=== PATIENT | female | born 1960 | race Caucasian/White ===

== ENCOUNTER 2016-07-14 13:52 | Inpatient (IN) ==
[2016-07-14 14:41] LABS: Amphetamine Screen,Urine Negative ng/mL (Cutoff=1000); Barbiturate Screen,Urine Negative ng/mL (Cutoff=200); Benzodiazepines Screen,Urine Positive ng/mL (Cutoff=200); Cannabinoid Screen,Urine Negative ng/mL (Cutoff = 50); Cocaine Screen,Urine Negative ng/mL (Cutoff= 300); Opiate Screen,Urine Positive ng/mL (Cutoff=300); Phencyclidine Screen,Urine Negative ng/mL (Cutoff=25)
[2016-07-14 14:45] LABS: Bilirubin,Urine Negative (Negative); Blood,Urine Negative (Negative); Clarity,Urine Clear (Clear); Color,Urine Yellow (Yellow); Glucose,Urine (UA) Normal (Normal); Ketones,Urine Negative (Negative); Leukocyte Esterase,Urine Small (Negative); Nitrite,Urine Positive (Negative); PH,Urine 6.5 pH Units (5.0-8.0); Protein,Urine Negative (Neg-Trace); Specific Gravity,Urine 1.014 (1.010-1.025); Urobilinogen,Urine Normal (Normal)
[2016-07-14 14:49] LABS: Bacteria,Urine Few per hpf (None-Few); Hyaline Casts,Urine None Seen per lpf (None-Few); RBC,Urine 0-3 per hpf (0-3); Squamous Epithelial Cell,Urine Many per lpf (None-Few)
[2016-07-14 14:51] LABS: Basophils # 0.1 K/mcL (0.0-0.2); Basophils % 0.9 %; Eosinophils % 0.5 %; Hematocrit 39.2 % (35.3-44.9); Hemoglobin 13.2 g/dL (11.5-15.4); Immature Granulocytes % 0.5 % (0-4); Lymphocytes # 3.5 K/mcL (0.6-4.6); Mean Corpuscular HGB Conc 33.7 g/dL (31.6-35.5); Mean Corpuscular Hemoglobin 29.9 pg (28.0-33.3); Mean Corpuscular Volume 88.7 fL (83.0-100.0); Mean Platelet Volume 9.8 fL (9.4-12.4); Monocytes # 0.5 K/mcL (0.0-1.3); Monocytes % 6.1 %; Neutrophils # 4.6 K/mcL (1.6-8.9); Platelet Count 218 K/mcL (140-400); Red Blood Count 4.42 M/mcL (3.82-4.97); Red Cell Distribution Width 13.1 % (11.5-14.5)
[2016-07-14 14:56] LABS: BUN/Creatinine Ratio 18 (6-26); Blood Urea Nitrogen 16 mg/dL (7-20); Calcium 9.4 mg/dL (8.6-10.8); Carbon Dioxide 25 mEq/L (19-29); Chloride 106 mEq/L (98-109); Ethanol < 10 mg/dL (0-10); Glucose 103 mg/dL (70-99); Osmolality,Calculated 293 (280-300); Potassium 3.6 mEq/L (3.5-4.5); Salicylate < 5.0 mg/dL (15-30); Sodium 141 mEq/L (136-145); eGFR For African Americans > 60 (> 60); eGFR For Non-African Americans > 60 (> 60)
--- NOTE | 2016-07-14 14:59 | Emergency Department Note ---
Disposition Clinical Impression: Suicidal ideation Disposition: Admitted As Inpatient Condition: Good Time of Disposition: 17:28 Psych HPI - General Chief Complaint: ED Psychiatric Symptoms Stated Complaint: SI / Anxiety Time Seen by Provider: 07/14/16 14:10 Source: patient, family Mode of arrival: ambulatory Limitations: no limitations Nursing Notes Reviewed: Yes Vital Signs Reviewed: Yes - History of Present Illness HPI Narrative: Patient presents emergency room the care of the family for evaluation of suicidal thoughts or ideation and a plan. Patient was waving a gun around at home yesterday saying she is shooting herself. Patient also has access to guns and knives.. Patient is long-standing history of depression. Off her medication several months ago. Since then she has had poorly controlled symptoms. Patient denies any other complaints or issues at this time no other medical history Pt complaint: suicidal ideation Onset (ago): day(s) Duration: constant History of similar episodes: Yes Improves with: none Worsens with: none Context: not taking psychiatric medications Associated Psychiatric Symptoms: depression, suicidal ideation Associated symptoms: Reports: denies other symptoms Treatments prior to arrival: none Self harm or harm to others: admits thoughts of self harm, has plan - Related Data Allergies Allergy/AdvReac Type Severity Reaction Status Date / Time No Known Allergies Allergy Verified 07/14/16 14:28 All systems ED: reviewed and negative except as stated. Constitutional: Denies: fever Cardiovascular: Denies: palpitations, dyspnea on exertion Respiratory: Denies: dyspnea, wheezes Gastrointestinal: Denies: abdominal pain, nausea, vomiting Genitourinary: Denies: dysuria, frequency Psychiatric: Reports: depression, suicidal thoughts. Denies: auditory hallucinations, visual hallucinations Past Medical History - Past Medical History Attestation: Yes The following information was validated with the patient. Source: patient Medical history: Reports: no medical history Psychiatric history: Reports: anxiety, previous psychiatric hospitalization - Social History Smoking Status: Current every day smoker Smokeless Tobacco Status: No Alcohol use: Reports: none Drug use: Reports: prescription drug abuse Physical Exam - General Limitations: no limitations General appearance: alert - Chest Chest inspection: Present: normal inspection, symmetric chest wall rise - Respiratory Respiratory exam: Present: normal lung sounds bilaterally - Cardiovascular Cardiovascular exam: Present: regular rate, normal rhythm, normal heart sounds - Abdominal Exam Abdominal exam: Present: soft, Non-Tender, normal bowel sounds. Absent: tenderness, distention, guarding, rebound, rigidity, Mcmahan's sign, Rovsing's sign, tenderness at McBurney's Point - Extremities Exam Extremities exam: Present: normal inspection, full ROM, normal capillary refill - Back Exam Back exam: Present: normal inspection, full ROM. Absent: tenderness - Neurological Exam Neurological exam: Present: alert, oriented X3 - Psychiatric Psychiatric exam: Present: normal affect, normal mood - Skin Skin exam: Present: warm, dry, intact, normal color Course Course Narrative: Patient seen and examined the time of arrival. 56-year-old female presenting here today with suicidal ideation and intent. She had a gun in her hand yesterday and was waving it around trying her describing that she is going to shoot herself. She has severe depression at baseline. She has been off her medications for the last 6 months. Patient denies any other symptoms or complaints. Patient denies chest pain shortness of breath headache vision changes nausea vomiting or diarrhea. Her only complaint on presentation here is that she will kill herself if she goes home. Patient does have access to guns, saw her doing this yesterday and they were concerned. She also has a history of cutting her wrists and forearms. Patient is no other visible injuries or trauma this time. She is stable one A Clares to be completed this point. A contacted by phone call was placed out to the psychiatric team here and they are going to come and evaluate the patient in the emergency room considering her labs are all normal. - Reevaluation(s) Reevaluation #1: Patient evaluated by the psychiatric team and they will be admitting for further evaluation and treatment. Will continue monitoring in the emergency room until the admission process is completed at this time. Time: 17:28 Vital Signs Temperature 98.1 F 07/14/16 13:54 Pulse Rate 85 07/14/16 13:54 Respiratory Rate 14 07/14/16 13:54 Blood Pressure 166/103 07/14/16 13:54 O2 Sat by Pulse Oximetry 98 07/14/16 13:54 Temperature 98.1 F 07/14/16 13:54 Pulse Rate 85 07/14/16 13:54 Respiratory Rate 14 07/14/16 13:54 Blood Pressure 166/103 07/14/16 13:54 O2 Sat by Pulse Oximetry 98 07/14/16 13:54 Oxygen Delivery Oxygen Delivery Room Air Psych - MDM Narrative Medical decision making narrative: Suicidal ideation with intent - Lab Data Lab results reviewed: Yes I reviewed the patient's lab results. Result diagrams: 07/14/16 14:31 07/14/16 14:31 Lab Results 07/14/16 07/14/16 07/14/16 Range/Units 14:25 14:25 14:31 WBC 8.8 (4.3-11.1) K/mcL RBC 4.42 (3.82-4.97) M/mcL Hgb 13.2 (11.5-15.4) g/dL Hct 39.2 (35.3-44.9) % MCV 88.7 (83.0-100.0) fL MCH 29.9 (28.0-33.3) pg MCHC 33.7 (31.6-35.5) g/dL RDW 13.1 (11.5-14.5) % Plt Count 218 (140-400) K/mcL MPV 9.8 (9.4-12.4) fL Immature Gran % 0.5 (0-4) % Seg Neutrophils % 52.0 % Lymphocytes % 40.0 % Monocytes % 6.1 % Eosinophils % 0.5 % Basophils % 0.9 % Neutrophils # 4.6 (1.6-8.9) K/mcL Lymphocytes # 3.5 (0.6-4.6) K/mcL Monocytes # 0.5 (0.0-1.3) K/mcL Eosinophils # 0.0 (0.0-0.6) K/mcL Basophils # 0.1 (0.0-0.2) K/mcL Sodium (136-145) mEq/L Potassium (3.5-4.5) mEq/L Chloride (98-109) mEq/L Carbon Dioxide (19-29) mEq/L BUN (7-20) mg/dL Creatinine (0.57-1.11) mg/dL Est GFR ( Amer) (> 60) Est GFR (Non-Af Amer) (> 60) BUN/Creatinine Ratio (6-26) Glucose (70-99) mg/dL Calculated Osmolality (280-300) Calcium (8.6-10.8) mg/dL Urine Color Yellow (Yellow) Urine Clarity Clear (Clear) Urine pH 6.5 (5.0-8.0) pH Units Ur Specific [place] 1.014 (1.010-1.025) Urine Protein Negative (Neg-Trace) mg/dL Urine Glucose (UA) Normal (Normal) mg/dL Urine Ketones Negative (Negative) mg/dL Urine Blood Negative (Negative) Urine Nitrite Positive A (Negative) Urine Bilirubin Negative (Negative) Urine Urobilinogen Normal (Normal) mg/dL Ur Leukocyte Esterase Small H (Negative) Urine Microscopic RBC 0-3 (0-3) per hpf Urine Microscopic WBC 5-15 H (0-3) per hpf Ur Squamous Epith Cells Many H (None-Few) per lpf Urine Bacteria Few (None-Few) per hpf Hyaline Casts None Seen (None-Few) per lpf Salicylates (15-30) mg/dL Urine Opiates Screen Positive H (Dsceng=667) ng/mL Acetaminophen (10-30) mcg/mL Ur Barbiturates Screen Negative (Qqwhnc=004) ng/mL Ur Phencyclidine Scrn Negative (Cutoff=25) ng/mL Ur Amphetamines Screen Negative (Clfckf=7372) ng/mL U Benzodiazepines Scrn Positive H (Nysstj=733) ng/mL Urine Cocaine Screen Negative (Cutoff= 300) ng/mL U Marijuana (THC) Screen Negative (Cutoff = 50) ng/mL Ethyl Alcohol (0-10) mg/dL 07/14/16 Range/Units 14:31 WBC (4.3-11.1) K/mcL RBC (3.82-4.97) M/mcL Hgb (11.5-15.4) g/dL Hct (35.3-44.9) % MCV (83.0-100.0) fL MCH (28.0-33.3) pg MCHC (31.6-35.5) g/dL RDW (11.5-14.5) % Plt Count (140-400) K/mcL MPV (9.4-12.4) fL Immature Gran % (0-4) % Seg Neutrophils % % Lymphocytes % % Monocytes % % Eosinophils % % Basophils % % Neutrophils # (1.6-8.9) K/mcL Lymphocytes # (0.6-4.6) K/mcL Monocytes # (0.0-1.3) K/mcL Eosinophils # (0.0-0.6) K/mcL Basophils # (0.0-0.2) K/mcL Sodium 141 (136-145) mEq/L Potassium 3.6 (3.5-4.5) mEq/L Chloride 106 (98-109) mEq/L Carbon Dioxide 25 (19-29) mEq/L BUN 16 (7-20) mg/dL Creatinine 0.91 (0.57-1.11) mg/dL Est GFR ( Amer) > 60 (> 60) Est GFR (Non-Af Amer) > 60 (> 60) BUN/Creatinine Ratio 18 (6-26) Glucose 103 H (70-99) mg/dL Calculated Osmolality 293 (280-300) Calcium 9.4 (8.6-10.8) mg/dL Urine Color (Yellow) Urine Clarity (Clear) Urine pH (5.0-8.0) pH Units Ur Specific [place] (1.010-1.025) Urine Protein (Neg-Trace) mg/dL Urine Glucose (UA) (Normal) mg/dL Urine Ketones (Negative) mg/dL Urine Blood (Negative) Urine Nitrite (Negative) Urine Bilirubin (Negative) Urine Urobilinogen (Normal) mg/dL Ur Leukocyte Esterase (Negative) Urine Microscopic RBC (0-3) per hpf Urine Microscopic WBC (0-3) per hpf Ur Squamous Epith Cells (None-Few) per lpf Urine Bacteria (None-Few) per hpf Hyaline Casts (None-Few) per lpf Salicylates < 5.0 L (15-30) mg/dL Urine Opiates Screen (Gzajsx=630) ng/mL Acetaminophen 13.0 (10-30) mcg/mL Ur Barbiturates Screen (Gdgijw=263) ng/mL Ur Phencyclidine Scrn (Cutoff=25) ng/mL Ur Amphetamines Screen (Mcgzel=4926) ng/mL U Benzodiazepines Scrn ([place]=873) ng/mL Urine Cocaine Screen (Cutoff= 300) ng/mL U Marijuana (THC) Screen (Cutoff = 50) ng/mL Ethyl Alcohol < 10 (0-10) mg/dL Psychiatric Medical Clearance - Medical Clearance Checklist Does the patient have a NEW psychiatric condition?: No Any abnormalities indicating possible medical illness?: No Any history of medical issues?: No Medical History: No Social History Section defined Any abnormal vital signs prior to transfer?: No Current Vitals: Last Vital Signs Temp 98.1 F 07/14/16 13:54 Pulse 85 07/14/16 13:54 Resp 14 07/14/16 13:54 BP 166/103 07/14/16 13:54 Pulse Ox 98 07/14/16 13:54 Is the patient intoxicated or cognitively impaired?: No Psychiatric Lab Panel: Drug Levels and Toxicity 07/14/16 07/14/16 14:25 14:31 Urine Opiates Screen Positive H Acetaminophen 13.0 Ur Barbiturates Screen Negative Ur Phencyclidine Scrn Negative Ur Amphetamines Screen Negative U Benzodiazepines Scrn Positive H Urine Cocaine Screen Negative U Marijuana (THC) Screen Negative Ethyl Alcohol < 10 Any abnormalities on the physical exam?: No Any abnormal labs?: No Abnormal Labs: Abnormal lab results Glucose 103 mg/dL (70-99) H 07/14/16 14:31 Urine Nitrite Positive (Negative) A 07/14/16 14:25 Ur Leukocyte Esterase Small (Negative) H 07/14/16 14:25 Urine Microscopic WBC 5-15 per hpf (0-3) H 07/14/16 14:25 Ur Squamous Epith Cells Many per lpf (None-Few) H 07/14/16 14:25 Salicylates < 5.0 mg/dL (15-30) L 07/14/16 14:31 Urine Opiates Screen Positive ng/mL (Ggzbii=636) H 07/14/16 14:25 U Benzodiazepines Scrn Positive ng/mL (Wfyjkc=958) H 07/14/16 14:25 Does the patient require durable medical equiptment?: No Is the patient ambulatory?: No Is the patient a fall risk?: No Has the patient been medically cleared?: Yes Any acute medical condition require Tx prior to transfer?: No Attestation Statement - Attestation Attestation: I examined this patient and my medical decision-making was reviewed with the NEONATAL SOCIAL WORKER/PA/Advanced Practice Nurse/Resident Physician. I agree with the documented findings, disposition and treatment plan as described except to the extent set forth below. Patient to ED with suicidal thoughts. Plan to shoot herself with a gun she has home. On exam she is anxious but in no distress. No physical complaints. Exam nonfocal. Plan. Medical clearance and evaluation by 1A. Admitted to [facility].
[2016-07-14] MEDS ORDERED: Mag Hydrox/Al Hydrox/Simeth 30 ML UDC PO PRN (19:44)
[2016-07-14] MEDS ORDERED: *HR* LORazepam 1 MG TABLET PO PRN (19:44)
[2016-07-14] MEDS ORDERED: MOM Conc 10 ML UD.LIQ PO PRN (19:44)
[2016-07-14] MEDS ORDERED: *HR* LORazepam 2 MG/ML VIAL IM PRN (19:44)
[2016-07-14] MEDS ORDERED: hydrOXYzine pamoate 25 MG CAPSULE PO PRN (19:44)
[2016-07-14] MEDS ORDERED: Haloperidol Lactate 5 MG/ML VIAL IM PRN (19:44)
[2016-07-14] MEDS ORDERED: traZODone 50 MG TABLET PO PRN (19:44)
[2016-07-14] MEDS: Ibuprofen 400 MG TABLET PO PRN (20:54)
[2016-07-15] MEDS: Ibuprofen 400 MG TABLET PO PRN (05:40)
[2016-07-15] MEDS: Lurasidone 20 MG TABLET PO SCH (09:50)
--- NOTE | 2016-07-15 11:06 | Psychiatry History & Physical ---
Date of Encounter: 07/15/16 Time of Encounter: 10:30 History of Present Illness Patient Stated Chief Complaint: Suicidal Medicare Admission Attestation: For traditional Medicare patients the provided hospital inpatient services are reasonable and necessary and in the case of services not specified as inpatient -only under 42 CFR 419.22 (n), that they are appropriately provided as inpatient services in accordance 42 CFR 412.3. For Critical Access Hospital the patient may reasonably be expected to be discharged or transferred to a hospital within 96 hours after admission to the Critical Access Hospital. Admitted From: Emergency Dept History of Present Illness: Ms. Morton is a 56 year old female admitted from the emergency room for suicidal ideation. Patient had a plan and threatened to shoot herself with a gun . family brought the patient to the hospital. Patient stated that she was hospitalized in the past 12 years ago when her son committed suicide. 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 Patient complained of poor sleep, anxiety and irritability and suicidal ideation. Past Med Surg Social Fam HX - Past Medical History Medical history: no medical history - Past Psychiatric History Psychiatric history: Reports: anxiety, depression, previous psychiatric hospitalization Family History of Suicide: Completed (Son was 17 years old when he shot himself , he was schizophrenic) - Past Surgical History Surgical History: hysterectomy - Social History Smoking Status: Current every day smoker Smokeless Tobacco Status: No Alcohol use: none Drug use: prescription drug abuse Medications & Allergies Duloxetine [Cymbalta] 60 mg PO DAILY 07/14/16 [History] Estradiol [Estradiol] 2 mg PO DAILY 07/14/16 [History] Lurasidone [Latuda] 20 mg PO DAILY 07/14/16 [History] Allergies No Known Allergies Allergy (Verified 07/14/16 17:55) Review of Systems Psychiatric: Reports: depression, anxiety, suicidal ideation, irritability Mental Status Exam Patient orientation: Yes Person, Yes Time, Yes Place Level of alertness: Alert Patient appearance: Appropriate, Disheveled Behavior: cooperative, nervous, anxious, restless Psychomotor activity: Increased Eye contact: Fleeting Contact Mood description: Anxious, Irritable Affect description: congruent with mood, labile Speech pattern: Normal rate, Normal rhythm, Normal tone Speech volume: Normal Thought process: Linear, Goal Oriented Thought content: No Suicidal ideation, No Homicidal ideation, No Overt delusions Perceptual disturbances: No Auditory hallucinations, No Visual hallucinations Attention span: Capable of Focused Attention Memory description: Grossly Intact Patient reliability: Reliable Historian Intelligence estimate: Average Judgment: Limited Insight: Partial Results - Vital Signs Vital signs: Temp Pulse Resp BP Pulse Ox 98.1 F 59 16 143/78 98 07/15/16 09:00 07/15/16 09:00 07/15/16 09:00 07/15/16 09:00 07/14/16 13:54 - Labs Labs: Laboratory Last Values WBC 8.8 K/mcL (4.3-11.1) 07/14/16 14:31 RBC 4.42 M/mcL (3.82-4.97) 07/14/16 14:31 Hgb 13.2 g/dL (11.5-15.4) 07/14/16 14:31 Hct 39.2 % (35.3-44.9) 07/14/16 14:31 MCV 88.7 fL (83.0-100.0) 07/14/16 14:31 MCH 29.9 pg (28.0-33.3) 07/14/16 14:31 MCHC 33.7 g/dL (31.6-35.5) 07/14/16 14:31 RDW 13.1 % (11.5-14.5) 07/14/16 14:31 Plt Count 218 K/mcL (140-400) 07/14/16 14:31 MPV 9.8 fL (9.4-12.4) 07/14/16 14:31 Immature Gran % 0.5 % (0-4) 07/14/16 14:31 Seg Neutrophils % 52.0 % 07/14/16 14:31 Lymphocytes % 40.0 % 07/14/16 14:31 Monocytes % 6.1 % 07/14/16 14:31 Eosinophils % 0.5 % 07/14/16 14:31 Basophils % 0.9 % 07/14/16 14:31 Neutrophils # 4.6 K/mcL (1.6-8.9) 07/14/16 14:31 Lymphocytes # 3.5 K/mcL (0.6-4.6) 07/14/16 14:31 Monocytes # 0.5 K/mcL (0.0-1.3) 07/14/16 14:31 Eosinophils # 0.0 K/mcL (0.0-0.6) 07/14/16 14:31 Basophils # 0.1 K/mcL (0.0-0.2) 07/14/16 14:31 Sodium 141 mEq/L (136-145) 07/14/16 14:31 Potassium 3.6 mEq/L (3.5-4.5) 07/14/16 14:31 Chloride 106 mEq/L (98-109) 07/14/16 14:31 Carbon Dioxide 25 mEq/L (19-29) 07/14/16 14:31 BUN 16 mg/dL (7-20) 07/14/16 14:31 Creatinine 0.91 mg/dL (0.57-1.11) 07/14/16 14:31 Est GFR ( Amer) > 60 (> 60) 07/14/16 14:31 Est GFR (Non-Af Amer) > 60 (> 60) 07/14/16 14:31 BUN/Creatinine Ratio 18 (6-26) 07/14/16 14:31 Glucose 103 mg/dL (70-99) H 07/14/16 14:31 Calculated Osmolality 293 (280-300) 07/14/16 14:31 Calcium 9.4 mg/dL (8.6-10.8) 07/14/16 14:31 Urine Color Yellow (Yellow) 07/14/16 14:25 Urine Clarity Clear (Clear) 07/14/16 14:25 Urine pH 6.5 pH Units (5.0-8.0) 07/14/16 14:25 Ur Specific [place] 1.014 (1.010-1.025) 07/14/16 14:25 Urine Protein Negative mg/dL (Neg-Trace) 07/14/16 14:25 Urine Glucose (UA) Normal mg/dL (Normal) 07/14/16 14:25 Urine Ketones Negative mg/dL (Negative) 07/14/16 14:25 Urine Blood Negative (Negative) 07/14/16 14:25 Urine Nitrite Positive (Negative) A 07/14/16 14:25 Urine Bilirubin Negative (Negative) 07/14/16 14:25 Urine Urobilinogen Normal mg/dL (Normal) 07/14/16 14:25 Ur Leukocyte Esterase Small (Negative) H 07/14/16 14:25 Urine Microscopic RBC 0-3 per hpf (0-3) 07/14/16 14:25 Urine Microscopic WBC 5-15 per hpf (0-3) H 07/14/16 14:25 Ur Squamous Epith Cells Many per lpf (None-Few) H 07/14/16 14:25 Urine Bacteria Few per hpf (None-Few) 07/14/16 14:25 Hyaline Casts None Seen per lpf (None-Few) 07/14/16 14:25 Salicylates < 5.0 mg/dL (15-30) L 07/14/16 14:31 Urine Opiates Screen Positive ng/mL (Tlnjqp=183) H 07/14/16 14:25 Acetaminophen 13.0 mcg/mL (10-30) 07/14/16 14:31 Ur Barbiturates Screen Negative ng/mL (Wliltq=281) 07/14/16 14:25 Ur Phencyclidine Scrn Negative ng/mL (Cutoff=25) 07/14/16 14:25 Ur Amphetamines Screen Negative ng/mL (Ghixhi=6865) 07/14/16 14:25 U Benzodiazepines Scrn Positive ng/mL (Icpkjz=905) H 07/14/16 14:25 Urine Cocaine Screen Negative ng/mL (Cutoff= 300) 07/14/16 14:25 U Marijuana (THC) Screen Negative ng/mL (Cutoff = 50) 07/14/16 14:25 Ethyl Alcohol < 10 mg/dL (0-10) 07/14/16 14:31 Assessment and Plan (1) Severe recurrent major depression without psychotic features Current visit: Yes Status: Acute Plan: Admit inpatient for safety and stabilization, Close observation, Suicide Precautions per unit protocol, Encourage participation in unit milieu, Group Therapy, Monitor sleep, Monitor appetite Additional Plan: Will add Klonopin 1 mg twice a day when necessary for anxiety. This was verified with the pharmacy. Risks, benefits, side effects, alternatives discussed w/pt: Yes Patient agreeable to treatment: Yes
[2016-07-15] MEDS: clonazePAM 1 MG TABLET PO PRN (12:11)
[2016-07-16] MEDS: Ibuprofen 400 MG TABLET PO PRN ×2 (00:46→20:13)
[2016-07-16] MEDS: clonazePAM 1 MG TABLET PO PRN ×3 (00:57→20:14)
[2016-07-16] MEDS: Lurasidone 20 MG TABLET PO SCH (08:21)
--- NOTE | 2016-07-16 14:53 | Psychiatry Progress Note ---
Date of Encounter: 07/16/16 Time of Encounter: 14:30 Subjective Interval history: Patient seen for follow-up. She reports some improvements, her sleep improved but she continued to feel helpless and continued to have suicidal thoughts. I discussed with her starting antidepressant and she reported history of response to Prozac in the past. She was encouraged to participate in groups and activities. Review of Systems Psychiatric: Reports: depression, anxiety, suicidal ideation, irritability Objective: Exam Patient orientation: Yes Person, Yes Time, Yes Place Level of alertness: Alert Patient appearance: Appropriate, Well Groomed Behavior: calm, cooperative, anxious Psychomotor activity: Normal Eye contact: Maintains Eye Contact Mood description: Depressed, Anxious Affect description: congruent with mood, constricted Speech pattern: Normal rate, Normal rhythm, Normal tone Speech volume: Normal Thought process: Linear, Goal Oriented Thought content: Yes Suicidal ideation, No Homicidal ideation, No Overt delusions Perceptual disturbances: No Auditory hallucinations, No Visual hallucinations Judgment: Fair Insight: Partial Results - Vital Signs Vital Signs: Temp Pulse Resp BP Pulse Ox 98.2 F 76 16 120/81 98 07/16/16 08:31 07/16/16 08:31 07/16/16 08:31 07/16/16 08:31 07/14/16 13:54 Assessment and Plan (1) Severe recurrent major depression without psychotic features Current visit: Yes Status: Acute Plan: Continue hospitalization, Close observation, Suicide Precautions per unit protocol, Encourage participation in unit milieu, Group Therapy, Monitor sleep, Monitor appetite Additional Plan: We will start patient on fluoxetine 20 mg daily benefits and side effects were discussed patient is agreeable and will monitor Risks, benefits, side effects, alternatives discussed w/pt: Yes Patient agreeable to treatment: Yes Consult Discharge Plan - Plan Referrals: [facility] [Outside] - 08/03/16 10:00 am (The above appointment is with Sherlyn Cobb, counselor. You will also see Norman Foster, psychiatric prescriber, on 08/31/2016 at 1:00pm in the same office. You will receive a new patient packet in the mail. Please bring that completed packet to this appointment, along with your insurance card, photo ID and medication list. If you are unable to keep this appointment, 24 hour business notice of cancellation is expected. This is the first available appointment. You may contact the office regularly to check for cancellations that may allow you to be seen sooner. ) [facility] [Outside] - 07/21/16 2:15 pm (The above appointment is with Kailyn Beach to establish you with a primary care provider. Please arrive 30 minutes early to complete paperwork. Please bring your insurance card, photo ID and medications in their original bottles. If you do not have insurance, bring proof of income to apply for the sliding fee scale. If you are unable to keep this appointment, 24 hour business notice of cancellation is expected. This is the first available appointment. You may contact the office regularly to check for cancellations that may allow you to be seen sooner. )
[2016-07-16] MEDS: Nicotine 21 MG PATCH.TD24 TD SCH (15:27)
[2016-07-16] MEDS: FLUoxetine 20 MG CAPSULE PO SCH (15:28)
[2016-07-17] MEDS: Ibuprofen 400 MG TABLET PO PRN ×3 (02:47→20:41)
[2016-07-17] MEDS: FLUoxetine 20 MG CAPSULE PO SCH (08:03)
[2016-07-17] MEDS: Lurasidone 20 MG TABLET PO SCH (08:03)
[2016-07-17] MEDS: Nicotine 21 MG PATCH.TD24 TD SCH (08:04)
--- NOTE | 2016-07-17 14:20 | Psychiatry Progress Note ---
Date of Encounter: 07/17/16 Time of Encounter: 14:21 Subjective Interval history: Patient is here for follow-up. She reports improvement in sleep and energy level. She is less depressed and more motivated and future oriented. Denied any hopelessness or suicidal ideation. She is tolerating her medication without any side effects. Discussed with medication compliance and follow-up compliance. Patient told me she did not follow-up with the current medication for 6 months prior to admission. Review of Systems Psychiatric: Reports: depression, anxiety, suicidal ideation, irritability Objective: Exam Patient orientation: Yes Person, Yes Time, Yes Place Level of alertness: Alert Patient appearance: Appropriate, Well Groomed Behavior: calm, cooperative Psychomotor activity: Normal Eye contact: Maintains Eye Contact Mood description: Anxious Affect description: congruent with mood, full range Speech pattern: Normal rate, Normal rhythm, Normal tone Speech volume: Normal Thought process: Linear, Goal Oriented Thought content: No Suicidal ideation, No Homicidal ideation, No Overt delusions Perceptual disturbances: No Auditory hallucinations, No Visual hallucinations Judgment: Fair Insight: Partial Results - Vital Signs Vital Signs: Temp Pulse Resp BP Pulse Ox 98.1 F 76 16 141/83 98 07/17/16 08:30 07/17/16 08:30 07/17/16 08:30 07/17/16 08:30 07/14/16 13:54 Assessment and Plan (1) Severe recurrent major depression without psychotic features Current visit: Yes Status: Acute Plan: Continue hospitalization, Close observation, Suicide Precautions per unit protocol, Encourage participation in unit milieu, Group Therapy, Monitor sleep, Monitor appetite Risks, benefits, side effects, alternatives discussed w/pt: Yes Patient agreeable to treatment: Yes Consult Discharge Plan - Plan Referrals: [facility] [Outside] - 08/03/16 10:00 am (The above appointment is with Sherlyn Cobb, counselor. You will also see Norman Fsoter, psychiatric prescriber, on 08/31/2016 at 1:00pm in the same office. You will receive a new patient packet in the mail. Please bring that completed packet to this appointment, along with your insurance card, photo ID and medication list. If you are unable to keep this appointment, 24 hour business notice of cancellation is expected. This is the first available appointment. You may contact the office regularly to check for cancellations that may allow you to be seen sooner. ) [facility] [place] [Outside] - 07/21/16 2:15 pm (The above appointment is with Kailyn Beach to establish you with a primary care provider. Please arrive 30 minutes early to complete paperwork. Please bring your insurance card, photo ID and medications in their original bottles. If you do not have insurance, bring proof of income to apply for the sliding fee scale. If you are unable to keep this appointment, 24 hour business notice of cancellation is expected. This is the first available appointment. You may contact the office regularly to check for cancellations that may allow you to be seen sooner. )
[2016-07-17] MEDS: clonazePAM 1 MG TABLET PO PRN (20:41)
[2016-07-18] MEDS: FLUoxetine 20 MG CAPSULE PO SCH (08:08)
[2016-07-18] MEDS: Nicotine 21 MG PATCH.TD24 TD SCH (08:09)
[2016-07-18] MEDS: Lurasidone 20 MG TABLET PO SCH (08:09)
[2016-07-18] MEDS: Ibuprofen 400 MG TABLET PO PRN ×2 (08:09→20:45)
[2016-07-18] MEDS: clonazePAM 1 MG TABLET PO PRN ×2 (08:19→20:45)
--- NOTE | 2016-07-18 10:55 | Psychiatry Progress Note ---
Date of Encounter: 07/18/16 Time of Encounter: 10:30 Subjective Interval history: Patient is here for follow-up. She reports having initial and mid insomnia and trazodone is not effective and can increase her restless leg symptoms. She had good response to Seroquel in the past. Otherwise she denies suicidal ideation, she is more motivated and participated in activities. Review of Systems Psychiatric: Reports: depression, anxiety, suicidal ideation, irritability Objective: Exam Patient orientation: Yes Person, Yes Time, Yes Place Level of alertness: Alert Patient appearance: Appropriate, Well Groomed Behavior: calm, cooperative Psychomotor activity: Normal Eye contact: Maintains Eye Contact Mood description: Euthymic/stable Affect description: congruent with mood, full range Speech pattern: Normal rate, Normal rhythm, Normal tone Speech volume: Normal Thought process: Linear, Goal Oriented Thought content: No Suicidal ideation, No Homicidal ideation, No Overt delusions Perceptual disturbances: No Auditory hallucinations, No Visual hallucinations Judgment: Fair Insight: Partial Results - Vital Signs Vital Signs: Temp Pulse Resp BP Pulse Ox 97.5 F L 73 18 117/74 98 07/18/16 08:26 07/18/16 08:26 07/18/16 08:26 07/18/16 08:26 07/14/16 13:54 Assessment and Plan (1) Severe 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 Risks, benefits, side effects, alternatives discussed w/pt: Yes Patient agreeable to treatment: Yes Consult Discharge Plan - Plan Referrals: [facility] [Outside] - 08/03/16 10:00 am (The above appointment is with Sherlyn Cobb, counselor. You will also see Norman Foster, psychiatric prescriber, on 08/31/2016 at 1:00pm in the same office. You will receive a new patient packet in the mail. Please bring that completed packet to this appointment, along with your insurance card, photo ID and medication list. If you are unable to keep this appointment, 24 hour business notice of cancellation is expected. This is the first available appointment. You may contact the office regularly to check for cancellations that may allow you to be seen sooner. ) [facility] [place] [Outside] - 07/21/16 2:15 pm (The above appointment is with Kailyn Beach to establish you with a primary care provider. Please arrive 30 minutes early to complete paperwork. Please bring your insurance card, photo ID and medications in their original bottles. If you do not have insurance, bring proof of income to apply for the sliding fee scale. If you are unable to keep this appointment, 24 hour business notice of cancellation is expected. This is the first available appointment. You may contact the office regularly to check for cancellations that may allow you to be seen sooner. )
[2016-07-19] MEDS: FLUoxetine 20 MG CAPSULE PO SCH (09:45)
[2016-07-19] MEDS: Lurasidone 20 MG TABLET PO SCH (09:45)
[2016-07-19] MEDS: Nicotine 21 MG PATCH.TD24 TD SCH (09:46)
[2016-07-19 10:26] VITALS: BP 115/76
--- NOTE | 2016-07-19 12:21 | Discharge Summary ---
Date of Encounter: 07/19/16 Time of Encounter: 12:10 Medications - Discharge Medications Prescriptions: Duloxetine [Cymbalta] 60 mg PO DAILY #60 capsule. Estradiol [Estrace] 2 mg PO DAILY #60 tablet FLUoxetine HCl [Prozac] 20 mg PO DAILY #30 capsule Lurasidone [Latuda] 20 mg PO DAILY #30 tablet Quetiapine Fumarate [Seroquel] 100 mg PO HS #30 tablet Duloxetine [Cymbalta] 60 mg PO DAILY #60 capsule. 07/19/16 [Rx] Estradiol [Estrace] 2 mg PO DAILY #60 tablet 07/19/16 [Rx] FLUoxetine HCl [Prozac] 20 mg PO DAILY #30 capsule 07/19/16 [Rx] Lurasidone [Latuda] 20 mg PO DAILY #30 tablet 07/19/16 [Rx] Quetiapine Fumarate [Seroquel] 100 mg PO HS #30 tablet 07/19/16 [Rx] Allergies No Known Allergies Allergy (Verified 07/14/16 17:55) Provider Date of admission: 07/14/16 17:25 Primary care physician: PCP NO Discharging clinician: Tabatha Grover Assessment and Plan - Follow up Plan Follow up with: [facility] [Outside] - 08/03/16 10:00 am (The above appointment is with Sherlyn Cobb, counselor. You will also see Norman Foster, psychiatric prescriber, on 08/31/2016 at 1:00pm in the same office. You will receive a new patient packet in the mail. Please bring that completed packet to this appointment, along with your insurance card, photo ID and medication list. If you are unable to keep this appointment, 24 hour business notice of cancellation is expected. This is the first available appointment. You may contact the office regularly to check for cancellations that may allow you to be seen sooner. ) [facility] [Outside] - 07/21/16 2:15 pm (The above appointment is with Kailyn Beach to establish you with a primary care provider. Please arrive 30 minutes early to complete paperwork. Please bring your insurance card, photo ID and medications in their original bottles. If you do not have insurance, bring proof of income to apply for the sliding fee scale. If you are unable to keep this appointment, 24 hour business notice of cancellation is expected. This is the first available appointment. You may contact the office regularly to check for cancellations that may allow you to be seen sooner. ) Functional capacity at discharge: independent ambulation Overall status at discharge: Stable Disposition: Home, Self-Care Hospital Course Hospital course: Ms. Morton is a 56 year old female with past diagnoses of Bipolar Disorder, Major Depression and PTSD who was admitted a week ago with thoughts of suicide. When she lost her last prescriber she went off her regular mental health medications and tried to make it without medications for close to a year. However, her depression returned and she started isolating. She presented to the hospital with suicidal thoughts. She was restarted on the medications that originally stabilized her and Seroquel was added for sleep. Once her sleep improved her mood improved as well. According to staff she is stable, cooperative, and she goes to groups. On exam today she evidenced no signs of psychosis or major mood disturbance. She denied SI and HI. She reported "I just want to live." She has supportive family and she will be living with her father. Her sister will help manage her medications. - Time Spent with Patient Total time spent providing and/or coordinating discharge services: Quality - Multiple Antipsychotics Patient discharged on 2 or more antipsychotic medications: Yes - Justification Documentation of: History 3 failed trials of monotherapy (latuda, seroquel, haldol) Mental Status Exam - Mental Status Exam Patient orientation: Yes Person, Yes Time, Yes Place Level of alertness: Alert Patient appearance: Appropriate, Well Groomed Behavior: calm, cooperative Psychomotor activity: Normal Eye contact: Maintains Eye Contact Mood description: Euthymic/stable Affect description: congruent with mood, full range Speech pattern: Normal rate Speech Volume: Normal Thought process: Linear, Goal Oriented Thought Content: No Suicidal ideation, No Homicidal ideation, No Overt delusions Perceptual Disturbances: No Auditory hallucinations, No Visual hallucinations Judgment: Good Insight: Partial
== END 2016-07-19 17:00 | disposition home or self-care (01) | DRG 885 ==
LOC: EMEROO 13:52 → 1ANU 17:25 → SUATTDRO 17:25 → 1ANU 18:02
PROVIDERS: ADMIT Psychiatry & Neurology Psychiatry; ATTEND Psychiatry & Neurology Psychiatry